=== PATIENT | male | born 1975 | race Caucasian/White ===

== ENCOUNTER 2017-10-10 12:12 | Emergency (ER) | payer BC ==
[2017-10-10 12:16] VITALS: BP 134/70; PULSE 86; TEMP 97.6; BMI 36.9
--- NOTE | 2017-10-10 12:20 | PDOC ---
History of Present Illness - General Chief Complaint: Blurry Vision Stated Complaint: BLURRY VISION Time Seen by Provider: 10/10/17 12:20 - History of Present Illness Initial Comments: 10/10/17 12:40 Mr. Escobar is a 42 yo male w/ no pmh who presents c/o a 1 minute history of blurry vision earlier today. He reports that he was eating breakfast and relaxing when he had gradual onset blurry vision he describes as "looking through a window with rain on it." He reports this went away after about a minute and he has come to the ER to get evaluated. He denies any other symptoms or related neurological sequelae although he is worried about this episode. The patient denies chest pain, shortness of breath, headache and dizziness. Denies fever, chills, nausea, vomit, diarrhea and constipation. Denies dysuria, frequency, urgency and hematuria. Allergies: NKDA Past History - Past Medical History Allergies/Adverse Reactions: Allergies Allergy/AdvReac Type Severity Reaction Status Date / Time No Known Allergies Allergy Verified 10/10/17 12:16 Home Medications: Ambulatory Orders NK [No Known Home Medication] 10/10/17 COPD: No - Suicide/Smoking/Psychosocial Hx Smoking Status: Yes Smoking History: Former smoker Have you smoked in the past 12 months: No Number of Cigarettes Smoked Daily: 2 If you are a former smoker, when did you quit?: 2017 Information on smoking cessation initiated: No Review of Systems - Review of Systems Comments:: 10/10/17 12:42 GENERAL/CONSTITUTIONAL: No fever or chills. No weakness. HEAD, EYES, EARS, NOSE AND THROAT:+Vision changes as described. No ear pain or discharge. No sore throat. CARDIOVASCULAR: No chest pain or shortness of breath RESPIRATORY: No cough, wheezing, or hemoptysis. GASTROINTESTINAL: No nausea, vomiting, diarrhea or constipation. GENITOURINARY: No dysuria, frequency, or change in urination. MUSCULOSKELETAL: No joint or muscle swelling or pain. No neck or back pain. SKIN: No rash NEUROLOGIC: No headache, vertigo, loss of consciousness, or change in strength/ sensation. ENDOCRINE: No increased thirst. No abnormal weight change HEMATOLOGIC/LYMPHATIC: No anemia, easy bleeding, or history of blood clots. ALLERGIC/IMMUNOLOGIC: No hives or skin allergy. *Physical Exam - Vital Signs Last Vital Signs Temp Pulse Resp BP Pulse Ox 97.6 F 86 18 134/70 99 10/10/17 12:13 10/10/17 12:13 10/10/17 12:13 10/10/17 12:13 10/10/17 12:13 - Physical Exam Comments: 10/10/17 12:42 GENERAL: Awake, alert, and fully oriented, in no acute distress HEAD: No signs of trauma, normocephalic, atraumatic EYES: PERRLA, EOMI, sclera anicteric, conjunctiva clear ENT: Auricles normal inspection, hearing grossly normal, nares patent, oropharynx clear without exudates. Moist mucosa NECK: Normal ROM, supple, no lymphadenopathy, JVD, or masses LUNGS: No distress, speaks full sentences, clear to auscultation bilaterally HEART: Regular rate and rhythm, normal S1 and S2, no murmurs, rubs or gallops, peripheral pulses normal and equal bilaterally. ABDOMEN: Soft, nontender, normoactive bowel sounds. No guarding, no rebound. No masses EXTREMITIES: Normal inspection, Normal range of motion, no edema. No clubbing or cyanosis. NEUROLOGICAL: Cranial nerves II through XII grossly intact. Normal speech, normal gait, no focal sensorimotor deficits SKIN: Warm, Dry, normal turgor, no rashes or lesions noted. ED Treatment Course - LABORATORY CBC & Chemistry Diagram: 10/10/17 13:07 10/10/17 13:07 Medical Decision Making - Medical Decision Making 10/10/17 12:42 Mr. Escobar is a 42 yo male w/ no pmh who presents for evaluation of visual changes as described. No observed neurological sequelae and acquity 20/20 with both eyes at this time. Basic labs sent to evaluate for infection, electrolyte imbalances, or increased blood sugar. *DC/Admit/Observation/Transfer Diagnosis at time of Disposition: Blurry vision - Discharge Dispostion Disposition: HOME - Referrals Referrals: Scott Baldwin [Primary Care Provider] - - Patient Instructions Printed Discharge Instructions: DI for Visual Field Disturbances Additional Instructions: Please return to ER if any return or increase of visual problems, pain, fever, chills, or other concerning symptoms. Follow-up with consultant dietitian as needed for further evaluation. - Post Discharge Activity
--- NOTE | 2017-10-10 12:55 | PDOC ---
Attending Attestation - Resident Resident Name: Dayday Mckeon - ED Attending Attestation I have performed the following: I have examined & evaluated the patient, The case was reviewed & discussed with the resident, I agree w/resident's findings & plan, Exceptions are as noted - HPI HPI: 10/10/17 12:48 42 M with no PMH presents to ED with 1 minute episode of blurred vision. Pt states he had just finished eating breakfast when he felt like his vision was "zoomed out". He denies double vision, denies vision loss, denies visual field cut. Denies any other symptoms. No HANKINS/N/V. No weakness/numbness/tingling in any extremity. States vision has since returned to baseline. Denies any complaints at this time. Denies FH of stroke or NC. - Physicial Exam PE: 10/10/17 12:55 "GENERAL: Awake, alert, and fully oriented, in no acute distress. HEAD: No signs of trauma EYES: PERRLA, EOMI, sclera anicteric, conjunctiva clear, visual acuity 20/20 bilaterally, visual bain intact ENT: Auricles normal inspection, hearing grossly normal, nares patent, oropharynx clear without exudates. Moist mucosa NECK: Nontender, no stepoffs, Normal ROM, supple, no lymphadenopathy, JVD, or masses LUNGS: Breath sounds equal, clear to auscultation bilaterally. No wheezes, and no crackles HEART: Regular rate and rhythm, normal S1 and S2, no murmurs, rubs or gallops ABDOMEN: Soft, nontender, normoactive bowel sounds. No guarding, no rebound. No masses EXTREMITIES: Normal range of motion, no edema. No clubbing or cyanosis. No cords, erythema, or tenderness NEUROLOGICAL: Cranial nerves II through XII intact. 5/5 strength and sensation in all extremities, Normal speech, normal gait, normal cerebellar function SKIN: Warm, Dry, normal turgor, no rashes or lesions noted. " - Medical Decision Making 10/10/17 12:56 42 M with no PMH presents with 1 minute episode of blurred vision, now with no complaints. No deficits on exam. Visual bain and acuity wnl. No stroke risk factors. - Labs - F/u PMD 10/10/17 14:07 Labs wnl Pt reassessed - continues to feel well with no symptoms. Pt is well appearing, with normal vitals. Clinically stable for DC at this time. I discussed the physical exam findings, ancillary test results and final diagnoses with the patient. I answered all of the patient's questions. The patient was satisfied with the care received and felt comfortable with the discharge plan and treatment plan. The patient agrees to follow up with the primary care physician within 24-72 hours.
[2017-10-10 14:03] LABS: ALBUMIN 4.2 g/dl (3.4-5.0); ALK PHOS 68 U/L (45-117); ANION GAP 10 (8-16); BASO % 0.3 % (0-2.0); BILIRUBIN,TOTAL 0.5 mg/dL (0.2-1.0); BLOOD UREA NITROGEN 15 mg/dL (7-18); CALCIUM 9.1 mg/dL (8.5-10.1); CHLORIDE 105 mmol/L (98-107); CO2 27 mmol/L (21-32); CREATININE 1.1 mg/dL (0.7-1.3); EOS % 0.7 % (0-4.5); GLUCOSE,RANDOM 106 mg/dL (74-106); HEMOGLOBIN 16.2 GM/dL (11.7-16.9); LYMPH % 21.3 % (8-40); MCH 28.2 pg (25.7-33.7); MCHC 33.8 g/dl (32.0-35.9); MEAN CELL VOLUME 83.5 fl (80-96); MEAN PLT VOLUME 9.3 fl (7.5-11.1); NEUT % 70.7 % (42.8-82.8); PLATELET COUNT 174 K/MM3 (134-434); POTASSIUM 4.1 mmol/L (3.5-5.1); RBC 5.75 M/mm3 (4.00-5.60); RDW 12.7 % (11.9-15.9); SGOT/AST 20 U/L (15-37); SGPT/ALT 39 U/L (12-78); SODIUM 142 mmol/L (136-145); TOT PROT 7.3 g/dl (6.4-8.2); WHITE BLOOD COUNT 7.7 K/mm3 (4.0-10.0)
== END 2017-10-10 14:14 | disposition home or self-care (01) ==
LOC: JER 12:12
PROC: 4A07X0Z Measurement of Visual Acuity, External Approach (ICD-10-PCS; principal; 2017-10-10)
DX: H53.8 Other visual disturbances (principal)
CPT/HCPCS: 36415; 80053; 85025; 99282-25

== ENCOUNTER 2021-03-29 07:02 | Emergency (ER) | payer BC ==
[2021-03-29 07:22] VITALS: TEMP 97.5; BMI 38.4
[2021-03-29] MEDS ORDERED: METOCLOPRAMIDE HCL INJECTION 10 MG/2 ML VIAL IVPUSH ONE (08:27)
[2021-03-29] MEDS ORDERED: LACTATED RINGERS SOLUTION 1000 ML INFUS.BAG IV ONE (08:28)
[2021-03-29] MEDS ORDERED: METOCLOPRAMIDE HCL INJECTION 10 MG/2 ML VIAL ONE (08:32)
[2021-03-29 09:29] LABS: BASO % 0.5 % (0-2.0); EOS % 0.6 % (0-4.5); HEMATOCRIT 46.4 % (35.4-49); LYMPH % 15.2 % (8-40); MCH 28.5 pg (25.7-33.7); MCHC 34.5 g/dl (32.0-35.9); MEAN CELL VOLUME 82.7 fl (80-96); MEAN PLT VOLUME 9.1 fl (7.5-11.1); MONO % 5.3 % (3.8-10.2); NEUT % 78.4 % (42.8-82.8); PLATELET COUNT 141 10^3/uL (134-434); RBC 5.61 M/mm3 (4.00-5.60); RDW 12.8 % (11.9-15.9); WHITE BLOOD COUNT 8.4 K/mm3 (4.0-10.0)
[2021-03-29 09:58] LABS: CALCIUM 8.8 mg/dL (8.5-10.1)
[2021-03-29 09:59] LABS: BLOOD UREA NITROGEN 14.6 mg/dL (7-18)
[2021-03-29 10:02] LABS: CREATININE 0.9 mg/dL (0.55-1.3)
[2021-03-29 10:03] LABS: BILIRUBIN,TOTAL 0.6 mg/dL (0.2-1); TOT PROT 7.2 g/dl (6.4-8.2)
[2021-03-29] MEDS ORDERED: ONDANSETRON 4 MG/2 ML VIAL IVPUSH ONE (10:13)
[2021-03-29] MEDS ORDERED: MECLIZINE HCL 12.5 MG TABLET PO ONE (10:15)
[2021-03-29] MEDS ORDERED: MECLIZINE HCL 12.5 MG TABLET ONE (10:36)
[2021-03-29] MEDS ORDERED: ONDANSETRON 4 MG/2 ML VIAL ONE (10:37)
[2021-03-29 11:48] VITALS: BP 130/62; PULSE 87
== END 2021-03-29 13:07 | disposition home or self-care (01) ==
LOC: JER 07:02
PROC: 3E033NZ Introduction of Analgesics, Hypnotics, Sedatives into Peripheral Vein, Percutaneous Approach (ICD-10-PCS; principal; 2021-03-29)
PROC: 3E033GC Introduction of Other Therapeutic Substance into Peripheral Vein, Percutaneous Approach (ICD-10-PCS; 2021-03-29)
DX: R42 Dizziness and giddiness (principal); R11.2 Nausea with vomiting, unspecified
CPT/HCPCS: 36415; 80053; 82962; 85025; 93005; 93010; 99284-25